=== PATIENT | female | born 1955 | race Asian ===

== ENCOUNTER 2016-12-06 08:36 | Emergency (ER) | payer OTHER ==
[~2016-12-06] VITALS: Ht 167.6 cm; Wt 122.5 kg
[2016-12-06 08:45] VITALS: TEMP 97.6
[2016-12-06] MEDS ORDERED: KLOR-CON M1010 MEQ OR (09:11)
[2016-12-06] MEDS ORDERED: NEXIUM40 M1 PO (09:11)
[2016-12-06] MEDS ORDERED: HYZAAR1 TA2 PO (09:13)
[2016-12-06 11:35] VITALS: BP 126/100
== END 2016-12-06 11:40 | disposition home or self-care (01) ==
LOC: ED 08:36
DX: M79.1 Myalgia (principal); M62.838 Other muscle spasm; M54.2 Cervicalgia; M54.5 Low back pain; R60.9 Edema, unspecified; W07.XXXA Fall from chair, initial encounter; Y92.89 Other specified places as the place of occurrence of the external cause
CPT/HCPCS: 96372; 99283; J1885; J2360

== ENCOUNTER 2016-12-28 17:44 | Emergency (ER) | payer OTHER ==
[~2016-12-28] VITALS: Ht 167.6 cm; Wt 127.0 kg
[~2016-12-28 17:44] MED LIST: HYZAAR1 TA2 PO; KLOR-CON M1010 MEQ OR; NEXIUM40 M1 PO
[2016-12-28 17:50] VITALS: BP 167/103; TEMP 99
== END 2016-12-28 18:45 | disposition home or self-care (01) ==
LOC: ED 17:44
DX: R52 Pain, unspecified (principal)
CPT/HCPCS: 99281

== ENCOUNTER 2017-06-01 08:40 | Emergency (ER) | payer OTHER ==
[~2017-06-01] VITALS: Ht 167.6 cm; Wt 122.5 kg
[2017-06-01 08:43] VITALS: TEMP 97.8
[2017-06-01 09:58] LABS: PLATELET COUNT 176 K/uL (152-353)
[2017-06-01 10:08] LABS: POTASSIUM 5.1 mmol/L (3.6-5.2); SODIUM 138 mmol/L (136-145)
[2017-06-01 10:19] LABS: PARTIAL THROMBOPLASTIN TIME 26.5 SECONDS (24.5-33.6)
[2017-06-01 11:33] VITALS: BP 150/74
== END 2017-06-01 11:34 | disposition home or self-care (01) ==
LOC: ED 08:40
PROVIDERS: Emergency Medicine
DX: R07.89 Other chest pain (principal); R00.1 Bradycardia, unspecified
CPT/HCPCS: 80053; 82550; 82553; 83880; 84484; 85027; 85379; 85610; 85730; 93005; 99283

== ENCOUNTER 2017-07-07 15:44 | Outpatient (CLI) | payer OTHER ==
[2017-07-07 16:37] LABS: PLATELET COUNT 172 K/uL (152-353)
== END 2017-07-07 22:10 | disposition home or self-care (01) ==
LOC: US 15:44
PROVIDERS: Internal Medicine
DX: M79.605 Pain in left leg (principal); R06.02 Shortness of breath; I10 Essential (primary) hypertension
CPT/HCPCS: 36415; 80053; 83880; 85027

== ENCOUNTER 2017-07-28 23:10 | Emergency (ER) | payer OTHER ==
[~2017-07-28] VITALS: Ht 167.6 cm; Wt 132.5 kg
[2017-07-29 00:23] VITALS: BP 103/63; TEMP 98.3
== END 2017-07-29 00:24 | disposition home or self-care (01) ==
LOC: ED 23:10
DX: R07.89 Other chest pain (principal)
CPT/HCPCS: 96372; 99282; J1885

== ENCOUNTER 2018-02-09 21:19 | Emergency (ER) | payer OTHER ==
[~2018-02-09] VITALS: Ht 167.6 cm; Wt 132.5 kg
[2018-02-09 22:16] LABS: PLATELET COUNT 188 K/uL (152-353)
[2018-02-09 22:32] LABS: POTASSIUM 4.2 mmol/L (3.6-5.2)
[2018-02-09 23:17] VITALS: BP 128/91; TEMP 97.7
== END 2018-02-09 23:17 | disposition home or self-care (01) ==
LOC: ED 21:19
PROVIDERS: Emergency Medicine
DX: J40 Bronchitis, not specified as acute or chronic (principal)
CPT/HCPCS: 36415; 80053; 85027; 87502; 87651; 94664; 94760; 99283

== ENCOUNTER 2018-11-15 04:30 | Emergency (ER) | payer OTHER ==
[~2018-11-15] VITALS: Ht 167.6 cm; Wt 132.5 kg
[2018-11-15 05:33] VITALS: BP 121/74; TEMP 97.9
== END 2018-11-15 05:37 | disposition home or self-care (01) ==
LOC: ED 04:30
DX: J06.9 Acute upper respiratory infection, unspecified (principal); M54.89 Other dorsalgia; G89.29 Other chronic pain; E66.8 Other obesity
CPT/HCPCS: 99282

== ENCOUNTER 2019-04-11 18:45 | Emergency (ER) | payer OTHER ==
[~2019-04-11] VITALS: Ht 167.6 cm; Wt 126.1 kg
[2019-04-11 19:15] VITALS: BP 131/90; TEMP 97.9
[2019-04-11] MEDS ORDERED: PERCOCET1 TA3 PO (19:38)
[2019-04-11] MEDS ORDERED: LISI20TA11 PO (19:38)
[2019-04-11] MEDS ORDERED: FURO40TA93 PO (19:38)
[2019-04-11] MEDS ORDERED: TIZA4TAB5 PO (19:39)
[2019-04-11] MEDS ORDERED: METOPROLOL25 M1 (19:39)
== END 2019-04-11 20:28 | disposition home or self-care (01) ==
LOC: ED 18:45
DX: M54.2 Cervicalgia (principal); M54.9 Dorsalgia, unspecified; M79.602 Pain in left arm
CPT/HCPCS: 99281

== ENCOUNTER 2020-11-15 10:26 | Outpatient (CLI) | payer OTHER ==
[~2020-11-15 10:26] MED LIST changes: +FURO40TA93 PO; +LISI20TA11 PO; +METOPROLOL25 M1; +PERCOCET1 TA3 PO; +TIZA4TAB5 PO
== END 2020-11-15 21:42 | disposition home or self-care (01) ==
LOC: US 10:26
PROVIDERS: ATTEND Nurse Practitioner Family
DX: R74.01 Elevation of levels of liver transaminase levels (principal)

== ENCOUNTER 2020-11-20 15:53 | Outpatient (CLI) | payer OTHER | END 2020-11-20 19:06 | disposition home or self-care (01) | LOC: CT 15:53 | PROVIDERS: ATTEND Nurse Practitioner Family | DX: R79.1 Abnormal coagulation profile (principal) | CPT/HCPCS: Q9963 ==

== ENCOUNTER 2022-04-02 12:32 | Outpatient (CLI) | payer OTHER | END 2022-04-02 20:43 | disposition home or self-care (01) | LOC: RAD 12:32 | PROVIDERS: ATTEND Nurse Practitioner Family | DX: U07.1 COVID-19 (principal) ==

== ENCOUNTER 2022-04-13 18:47 | Emergency (ER) | payer OTHER ==
[~2022-04-13] VITALS: Ht 167.6 cm; Wt 145.2 kg
[2022-04-13 19:00] VITALS: BP 231/83; TEMP 97.9
[2022-04-13 19:59] LABS: PLATELET COUNT 191 K/uL (152-353)
[2022-04-13 20:18] LABS: POTASSIUM 3.7 mmol/L (3.6-5.2)
== END 2022-04-13 21:30 | disposition home or self-care (01) ==
LOC: ED 18:47
PROVIDERS: Emergency Medicine Emergency Medical Services
DX: S16.1XXA Strain of muscle, fascia and tendon at neck level, initial encounter (principal); S40.011A Contusion of right shoulder, initial encounter; S80.01XA Contusion of right knee, initial encounter; R51.9 Headache, unspecified; W10.1XXA Fall (on)(from) sidewalk curb, initial encounter; Y92.89 Other specified places as the place of occurrence of the external cause
CPT/HCPCS: 36415; 80048; 85027; 96372; 99283; J2270; J2550

== ENCOUNTER 2022-07-16 18:02 | Emergency (ER) | payer OTHER ==
[~2022-07-16] VITALS: Ht 167.6 cm; Wt 117.9 kg
[2022-07-16 18:05] VITALS: BP 137/89; TEMP 98.4
== END 2022-07-16 18:45 | disposition home or self-care (01) ==
LOC: ED 18:02
DX: T16.1XXA Foreign body in right ear, initial encounter (principal); X58.XXXA Exposure to other specified factors, initial encounter
CPT/HCPCS: 99281